=== PATIENT | male | born 1940 | race Caucasian/White ===

== ENCOUNTER 2016-10-23 13:15 | Emergency (ER) | payer OTHER ==
[2016-10-23 13:29] VITALS: BMI 33.0
[2016-10-23] MEDS ORDERED: NS 1000 ML 1,000 ML IV ONE ×2 (13:46→15:07)
[2016-10-23] MEDS ORDERED: NS 1000 ML 1,000 ML ONE ×2 (13:46→15:12)
[2016-10-23 13:51] VITALS: BP 118/72
--- NOTE | 2016-10-23 13:57 | DR.GENAD ---
HPI - PCP Primary Care Physician: dr ahncock in [place] - Complaint/Symptoms Chief Complaint Doctors Comments: Patient admits to onset of vomiting and diarrhea on last night. Prior to that he was in his usual state of health. Chief Complaint:: patient stated he has been vomiting diarrhea and dizzy - Source History Provided: Patient - Mode of Arrival Mode of Arrival: Ambulatory - Timing Onset of Chief Complaint: 10/22/16 PMH - PMH Past Medical History: No (unknown) Past Surgical History: No Surgical History: Unknown Unable to Obtain Due To: Altered mental status - Family History History of Family Medical Conditions: No - Social History Does patient currently use any type of tobacco product: No Have you used tobacco products in the last 12 months: No Type of Tobacco Use: None Does any household member use tobacco: No Alcohol Use: None Do you use any recreational Drugs:: No Lives With: Alone Lives Where: Home - infectious screening In the last 2 months have you had wt loss of >10#?: NO Have you had fever, night sweats or hemotysis?: No Have you traveled outside the country in the last 6 months?: No Isolation: Standard ROS - Review of Systems Constitutional: No Symptoms Reported Eyes: No Symptoms Reported ENTM: No Symptoms Reported Respiratoy: No Symptoms Reported Cardiovascular: No Symptoms Reported Gastrointestinal/Abdominal: No Symptoms Reported Genitourinary: No Symptoms Reported Neurological: Dizziness Musculoskeletal: No Symptoms Reported Integumentary: No Symptoms Reported Hematologic/Lymphatic: No Symptoms Reported Endocrine: No Symptoms Reported Psychiatric: No Symptoms Reported All Other Systems: Reviewed and Negative PE - Vital Signs Vitals: Temperature 98.7 F Pulse Rate 136 Respiratory Rate 18 Blood Pressure 118/72 O2 Sat by Pulse Oximetry 100 - General Limitations: No Limitations General Appearance: Alert, In No Apparent Distress - Head Head Exam: Normal Inspection, Atraumatic - Eyes Eye exam: Normal Appearance, PERRL, EOMI - ENT ENT Exam: Mucous Membranes Dry External Ear Exam: Normal External Inspection TM/Canal Exam: Bilateral Normal Nose Exam: Normal Nose Exam Mouth Exam: Normal Inspection Throat Exam: Normal Inspection - Neck Neck Exam: Normal Inspection - Chest Chest Inspection: Normal Inspection - Respiratory Respiratory Exam: Normal Lung Sounds Bilat, Chest Wall Tenderness Respiratory Exam: Bilateral Clear to Auscultation - Cardiovascular Cardiovascular Exam: Regular Rate - Abdominal Exam Abdominal Exam: Normal Inspection Abdominal Tenderness: negative: RUQ, RLQ, LUQ, LLQ, Epigastrium, Suprapubic, Diffuse, Mild, Moderate, Severe, Other - Extremities Extremities Exam: Normal Inspection, Full ROM. negative: Normal Capillary Refill (prolong) - Back Back Exam: negative: (R) CVA Tenderness, (L) CVA Tenderness - Neurologic Neurological Exam: Alert, Oriented X3, CN II-XII Intact - Psychiatric Psychiatric Exam: Normal Affect - Skin Skin Exam: Warm, Dry, Intact Course - Reevaluation 1st: Improved ROR - Labs Reviewed Result Diagrams: 10/23/16 13:34 10/23/16 13:34 Laboratory: WBC 12.1 X10^3/uL (3.6-10.0) H 10/23/16 13:34 RBC 5.61 X10^6/uL (4.7-6.0) 10/23/16 13:34 Hgb 16.5 g/dL (13.5-18.0) 10/23/16 13:34 Hct 49.4 % (42.0-54.0) 10/23/16 13:34 MCV 88.1 fL (80.0-100.0) 10/23/16 13:34 MCH 29.4 pg (27.0-34.0) 10/23/16 13:34 MCHC 33.3 g/dL (33.0-35.0) 10/23/16 13:34 RDW 14.6 % (11.6-16.5) 10/23/16 13:34 Plt Count 212 X10^3/uL (150.0-450.0) 10/23/16 13:34 MPV 8.4 fL (7.4-11.0) 10/23/16 13:34 Neut % 89.2 % (42.0-75.0) H 10/23/16 13:34 Lymph % 4.8 % (21.0-51.0) L 10/23/16 13:34 [place] % 4.8 % (0.0-13.0) 10/23/16 13:34 Eos % 1.0 % (0.9-2.9) 10/23/16 13:34 Baso % 0.2 % (0.2-1.0) 10/23/16 13:34 Neut # 10.8 x10^3/uL (2.2-4.8) H 10/23/16 13:34 Lymph # 0.6 X10^3/uL (1.3-2.9) L 10/23/16 13:34 [place] # 0.6 x10^3/uL (0.3-0.8) 10/23/16 13:34 Eos # 0.1 x10^3/uL (0.0-0.2) 10/23/16 13:34 Baso # 0.0 X10^3/uL (0.0-0.1) 10/23/16 13:34 Absolute Nucleated RBC 0.1 /100WBC 10/23/16 13:34 Sodium 139 mmol/L (136-145) 10/23/16 13:34 Corrected Sodium 141 mmol/L (136-145) 10/23/16 13:34 Potassium 4.1 mmol/L (3.5-5.1) 10/23/16 13:34 Chloride 101 mmol/L (98-107) 10/23/16 13:34 Carbon Dioxide 27.8 mmol/L (21-32) 10/23/16 13:34 BUN 36 mg/dL (7-18) H 10/23/16 13:34 Creatinine 1.62 mg/dL (0.70-1.30) H 10/23/16 13:34 Est GFR (MDRD) Af Amer 53 (>60) L 10/23/16 13:34 Est GFR (MDRD) Non-Af 44 (>60) L 10/23/16 13:34 Glucose 175 mg/dL (65-99) H 10/23/16 13:34 Hemoglobin A1c 6.3 % (4.5-6.2) H 10/23/16 13:34 Calcium 8.4 mg/dL (8.5-10.1) L 10/23/16 13:34 Corrected Calcium TNP 10/23/16 13:34 Phosphorus 4.2 mg/dL (2.6-4.7) 10/23/16 13:34 Magnesium 1.7 mg/dL (1.7-2.9) 10/23/16 13:34 Total Bilirubin 0.50 mg/dL (0.2-1.0) 10/23/16 13:34 AST 27 Units/L (15-37) 10/23/16 13:34 ALT 37 Units/L (12-78) 10/23/16 13:34 Alkaline Phosphatase 30 Units/L (46-116) L 10/23/16 13:34 Creatine Kinase 72 Units/L (39-308) 10/23/16 13:34 CK-MB (CK-2) 1.2 ng/mL (0-4.0) 10/23/16 13:34 CK/CKMB % Calc 1.7 % (<4) 10/23/16 13:34 Troponin I < 0.02 ng/mL (0-1.5) 10/23/16 13:34 Total Protein 8.0 g/dL (6.4-8.2) 10/23/16 13:34 Albumin 3.9 g/dL (3.4-5.0) 10/23/16 13:34 Globulin 4.1 g/dL (2.5-4.5) 10/23/16 13:34 Albumin/Globulin Ratio 1.0 Ratio (1.1-2.1) L 10/23/16 13:34 Specimen Type Clean catch urine 10/23/16 14:13 Urine Color Yellow (YELLOW) 10/23/16 14:13 Urine Appearance Clear (CLEAR) 10/23/16 14:13 Urine pH 5.0 (5.0 - 8.0) 10/23/16 14:13 Ur Specific [place] 1.025 (1.000-1.030) 10/23/16 14:13 Urine Protein 3+ (NEGATIVE) 10/23/16 14:13 Urine Glucose (UA) 1+ (NEGATIVE) 10/23/16 14:13 Urine Ketones 1+ (NEGATIVE) 10/23/16 14:13 Urine Occult Blood Negative (NEGATIVE) 10/23/16 14:13 Urine Nitrite Negative (NEGATIVE) 10/23/16 14:13 Urine Bilirubin 1+ (NEGATIVE) 10/23/16 14:13 Urine Urobilinogen Normal (NORMAL) 10/23/16 14:13 Ur Leukocyte Esterase 1+ (NEGATIVE) 10/23/16 14:13 Urine RBC Rare /HPF (NEGATIVE) 10/23/16 14:13 Urine WBC 03 - 06 /HPF (NEGATIVE) 10/23/16 14:13 Ur Squamous Epith Cells Few /HPF (NEGATIVE) 10/23/16 14:13 Amorphous Sediment 2+ /HPF (NEGATIVE) 10/23/16 14:13 Urine Bacteria Negative /HPF (NEGATIVE) 10/23/16 14:13 Hyaline Casts Few /LPF (NEGATIVE) 10/23/16 14:13 Urine Mucus Moderate /HPF (NEGATIVE) 10/23/16 14:13 Ur Culture Indicated? 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 No evidence of acute intracranial abnormality. 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
[2016-10-23 14:17] LABS: BASOPHILS % (AUTO) 0.2 % (0.2-1.0); EOSINOPHILS # (AUTO) 0.1 x10^3/uL (0.0-0.2); HEMATOCRIT 49.4 % (42.0-54.0); HEMOGLOBIN 16.5 g/dL (13.5-18.0); LYMPHOCYTES # (AUTO) 0.6 X10^3/uL (1.3-2.9); LYMPHOCYTES % (AUTO) 4.8 % (21.0-51.0); MEAN CORPUSCULAR HEMOGLOBIN 29.4 pg (27.0-34.0); MEAN CORPUSCULAR HGB CONC 33.3 g/dL (33.0-35.0); MEAN CORPUSCULAR VOLUME 88.1 fL (80.0-100.0); MEAN PLATELET VOLUME 8.4 fL (7.4-11.0); MONOCYTES # (AUTO) 0.6 x10^3/uL (0.3-0.8); MONOCYTES % (AUTO) 4.8 % (0.0-13.0); NEUTROPHILS # (AUTO) 10.8 x10^3/uL (2.2-4.8); NEUTROPHILS % (AUTO) 89.2 % (42.0-75.0); PLATELET COUNT 212 X10^3/uL (150.0-450.0); RED BLOOD COUNT 5.61 X10^6/uL (4.7-6.0); RED CELL DISTRIBUTION WIDTH 14.6 % (11.6-16.5); WHITE BLOOD COUNT 12.1 X10^3/uL (3.6-10.0)
[2016-10-23 14:29] LABS: HEMOGLOBIN A1C 6.3 % (4.5-6.2)
[2016-10-23 14:31] LABS: BLOOD UREA NITROGEN 36 mg/dL (7-18); CALCIUM 8.4 mg/dL (8.5-10.1); CARBON DIOXIDE 27.8 mmol/L (21-32); CHLORIDE 101 mmol/L (98-107); COR NA(FOR HYPERGLY) 141 mmol/L (136-145); CREATININE 1.62 mg/dL (0.70-1.30); GLUCOSE 175 mg/dL (65-99); SODIUM 139 mmol/L (136-145); TROPONIN I < 0.02 ng/mL (0-1.5); eGFR BLACK RACES 53 (>60); eGFR NON BLACK RACES 44 (>60)
[2016-10-23 14:33] LABS: BILIRUBIN,URINE 1+ (NEGATIVE); BLOOD/HEMOGLOBIN,URINE NEGATIVE (NEGATIVE); GLUCOSE, URINE 1+ (NEGATIVE); KETONES,URINE 1+ (NEGATIVE); LEUKOCYTE ESTERASE ,URINE 1+ (NEGATIVE); NITRITES,URINE NEGATIVE (NEGATIVE); PROTEIN,URINE 3+ (NEGATIVE); UROBILINOGEN,URINE NORMAL (NORMAL)
[2016-10-23 14:36] LABS: ALANINE AMINOTRANSFERASE 37 Units/L (12-78); ALBUMIN 3.9 g/dL (3.4-5.0); ALKALINE PHOSPHATASE 30 Units/L (46-116); ASPARTATE AMINO TRANSFERASE 27 Units/L (15-37); CKMB % 1.7 % (<4); CREATINE KINASE 72 Units/L (39-308); CREATINE KINASE MB 1.2 ng/mL (0-4.0); MAGNESIUM 1.7 mg/dL (1.7-2.9); PHOSPHORUS 4.2 mg/dL (2.6-4.7)
[2016-10-23 14:43] LABS: APPEARANCE,URINE CLEAR (CLEAR); COLOR,URINE YELLOW (YELLOW)
--- NOTE | 2016-10-23 14:47 | CT ---
HISTORY: Dizzy Study: CT brain without contrast Comparison: None Technique: Multiple axial images of the brain were obtained from the skull base to the vertex without administr ation of IV contrast. Dose reduction techniques including Automated Exposure Control (AEC) and adju stment of mA and kV were utilized. Findings: There is generalized cerebral volume loss and moderate nonspecific white matter hypoattenuation sugg esting microvascular ischemic changes. There is a hypodensity right subinsular region suggesting rem ote infarct. No evidence of acute hemorrhage, midline shift, mass effect or abnormal extra-axial fl uid collection. There is prominence of the ventricles and cortical sulci commensurate with volume l oss. The soft tissues and osseous structures are unremarkable. There is bilateral maxillary sinus m ucosal thickening. The remaining paranasal sinuses and mastoid air cells are clear. IMPRESSION: 1. 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 No ev idence of acute intracranial abnormality. 2. Bilateral maxillary sinus mucosal disease. Reported By:
[2016-10-23 14:51] LABS: BACTERIA,URINE NEGATIVE /HPF (NEGATIVE); RBC,URINE RARE /HPF (NEGATIVE); SQUAMOUS EPITHELIAL CELL,UR FEW /HPF (NEGATIVE)
[2016-10-23 14:52] LABS: AMORPHOUS SEDIMENT,UR 2+ /HPF (NEGATIVE); HYALINE CASTS, URINE FEW /LPF (NEGATIVE); MUCUS,URINE MODERATE /HPF (NEGATIVE)
[2016-10-23] MEDS ORDERED: ROCEPHIN VIAL 1 GM 1 GM in NS 50 ML IV + SPIKE MINIBAG* 50 ML IV ONE (15:07)
[2016-10-23] MEDS ORDERED: ROCEPHIN 1 GM IV PREMIX * OUT OF STOCK 50 ML IV ONE (15:12)
== END 2016-10-23 17:04 | disposition home or self-care (01) ==
LOC: ER 13:33
DX: N30.01 Acute cystitis with hematuria (principal); J32.0 Chronic maxillary sinusitis; E86.0 Dehydration; R79.89 Other specified abnormal findings of blood chemistry; G31.9 Degenerative disease of nervous system, unspecified; R41.82 Altered mental status, unspecified; R94.31 Abnormal electrocardiogram [ECG] [EKG]
CPT/HCPCS: 36415; 70450; 80053; 81001; 82550; 82553; 83036; 83735; 84100; 84484; 85025; 93005; 93010; 96365; 96367; 96374; 99283; A4222; J0696

== ENCOUNTER 2017-09-08 12:37 | Emergency (ER) | payer OTHER ==
[2017-09-08 12:49] VITALS: BMI 31.9
[2017-09-08 13:00] VITALS: BP 117/58
[2017-09-08] MEDS ORDERED: NS 1000 ML 1,000 ML IV ONE (13:00)
--- NOTE | 2017-09-08 13:01 | DR.GENAD ---
HPI - PCP Primary Care Physician: [facility] - HPI Comment HPI Comment: GETTING WORSE. NO DYSUTIA OR FEVER. - Complaint/Symptoms Chief Complaint Doctors Comments: GENERALIZE WEAKNESS, NAUSEA, VOMITING, ABDOMINA PAIN AND DIARRHEA FOR ONE DAY. Chief Complaint:: PT. C/O ABDOMINAL PAIN, DIARRHEA, MALAISE, WEAKNESS. - Nurses notes reviewed Nurses Notes Review: Yes - Source History Provided: Patient, Family Member - Mode of Arrival Mode of Arrival: Ambulatory - Timing Onset of Chief Complaint: 09/08/17 Came on: Suddenly - Duration Duration: Constant Duration: Hours - Severity Severity: Moderate PMH - PMH Past Medical History: Yes Past Medical History: Diabetes, Hypertension, Hypothyroidism, Kidney Stones Past Medical History Comment: BLEEDING ULCER Past Surgical History: Yes Surgical History: Tonsillectomy, Lithotripsy, Other Past Surgical History Comment: PROSTATE - Family History History of Family Medical Conditions: No - Social History Does patient currently use any type of tobacco product: No Have you used tobacco products in the last 12 months: No Type of Tobacco Use: None Does any household member use tobacco: No Alcohol Use: None Do you use any recreational Drugs:: No Lives With: Spouse Lives Where: Home - infectious screening In the last 2 months have you had wt loss of >10#?: NO Have you had fever, night sweats or hemotysis?: No Have you traveled outside the country in the last 6 months?: No Isolation: Standard ROS - Review of Systems Constitutional: Weakness, Fatigue. negative: Chills, Fever Eyes: No Symptoms Reported ENTM: Nose Congestion. negative: Ear Pain, Nose Discharge, Throat Pain Respiratoy: Moist Cough. negative: Short of Breath, Wheezing, Hemoptysis Cardiovascular: No Symptoms Reported Gastrointestinal/Abdominal: Abdominal Pain, Diarrhea, Nausea, Vomiting Genitourinary: No Symptoms Reported Neurological: No Symptoms Reported Musculoskeletal: No Symptoms Reported Integumentary: No Symptoms Reported Hematologic/Lymphatic: No Symptoms Reported Endocrine: No Symptoms Reported All Other Systems: Reviewed and Negative PE - Vital Signs Vitals: Temperature 96.9 F Pulse Rate [Right Brachial] 61 Pulse Rate 64 Respiratory Rate 17 Blood Pressure [Right Arm] 117/58 Blood Pressure 107/54 O2 Sat by Pulse Oximetry 95 - General Limitations: No Limitations General Appearance: Alert - Head Head Exam: Normal Inspection - Eyes Eye exam: Normal Appearance - ENT ENT Exam: Normal External Ear Exam External Ear Exam: Normal External Inspection TM/Canal Exam: Bilateral Normal Nose Exam: Normal Nose Exam Throat Exam: Normal Inspection - Neck Neck Exam: Normal Inspection - Chest Chest Inspection: Symmetric Chest Wall Rise - Respiratory Respiratory Exam: Normal Lung Sounds Bilat Respiratory Exam: Bilateral Clear to Auscultation - Cardiovascular Cardiovascular Exam: Regular Rate, Normal Rhythm, Normal Heart Sounds - Abdominal Exam Abdominal Exam: Normal Bowel Sounds, Soft Abdominal Tenderness: Diffuse, Moderate - Extremities Extremities Exam: Normal Inspection - Back Back Exam: Normal Inspection - Neurologic Neurological Exam: Alert, Oriented X3 - Skin Skin Exam: Normal Color MDM - Differential Diagnosis Differential Diagnosis: ABDOMINAL PAIN, DIARRHEA, INFLUENZA, Course - Treatment Treatment: SEE ORDERS. - Education/Counseling Education/Counseling: Patient, Education Educated On: Diagnosis, Needs for Follow Up ROR - Labs Reviewed Laboratory Results Reviewed?: Yes Result Diagrams: 09/08/17 13:00 09/08/17 13:00 Laboratory: WBC 3.1 X10^3/uL (3.6-10.0) L 09/08/17 13:00 RBC 4.97 X10^6/uL (4.7-6.0) 09/08/17 13:00 Hgb 15.1 g/dL (13.5-18.0) 09/08/17 13:00 Hct 43.4 % (42.0-54.0) 09/08/17 13:00 MCV 87.4 fL (80.0-100.0) 09/08/17 13:00 MCH 30.3 pg (27.0-34.0) 09/08/17 13:00 MCHC 34.7 g/dL (33.0-35.0) 09/08/17 13:00 RDW 13.2 % (11.6-16.5) 09/08/17 13:00 Plt Count 146 X10^3/uL (150.0-450.0) L 09/08/17 13:00 MPV 8.1 fL (7.4-11.0) 09/08/17 13:00 Neut % 53.3 % (42.0-75.0) 09/08/17 13:00 Lymph % 28.3 % (21.0-51.0) 09/08/17 13:00 [place] % 12.0 % (0.0-13.0) 09/08/17 13:00 Eos % 5.5 % (0.9-2.9) H 09/08/17 13:00 Baso % 0.9 % (0.2-1.0) 09/08/17 13:00 Neut # 1.7 x10^3/uL (2.2-4.8) L 09/08/17 13:00 Lymph # 0.9 X10^3/uL (1.3-2.9) L 09/08/17 13:00 [place] # 0.4 x10^3/uL (0.3-0.8) 09/08/17 13:00 Eos # 0.2 x10^3/uL (0.0-0.2) 09/08/17 13:00 Baso # 0.0 X10^3/uL (0.0-0.1) 09/08/17 13:00 Absolute Nucleated RBC 0.1 /100WBC 09/08/17 13:00 Sodium 138 mmol/L (136-145) 09/08/17 13:00 Corrected Sodium 139 mmol/L (136-145) 09/08/17 13:00 Potassium 3.8 mmol/L (3.5-5.1) 09/08/17 13:00 Chloride 102 mmol/L (98-107) 09/08/17 13:00 Carbon Dioxide 28.3 mmol/L (21-32) 09/08/17 13:00 BUN 23 mg/dL (7-18) H 09/08/17 13:00 Creatinine 1.34 mg/dL (0.70-1.30) H 09/08/17 13:00 Est GFR (MDRD) Af Amer > 60 (>60) 09/08/17 13:00 Est GFR (MDRD) Non-Af 55 (>60) L 09/08/17 13:00 Glucose 126 mg/dL (65-99) H 09/08/17 13:00 POC Glucose (mg/dL) 118 mg/dL (65-99) H 09/08/17 12:45 Calcium 8.8 mg/dL (8.5-10.1) 09/08/17 13:00 Corrected Calcium TNP 09/08/17 13:00 Total Bilirubin 0.20 mg/dL (0.2-1.0) 09/08/17 13:00 AST 33 Units/L (15-37) 09/08/17 13:00 ALT 30 Units/L (12-78) 09/08/17 13:00 Alkaline Phosphatase 24 Units/L (46-116) L 09/08/17 13:00 Creatine Kinase 136 Units/L (39-308) 09/08/17 13:00 CK-MB (CK-2) 1.8 ng/mL (0-4.0) 09/08/17 13:00 CK/CKMB % Calc 1.3 % (<4) 09/08/17 13:00 Troponin I < 0.02 ng/mL (0-1.5) 09/08/17 13:00 Total Protein 7.2 g/dL (6.4-8.2) 09/08/17 13:00 Albumin 3.5 g/dL (3.4-5.0) 09/08/17 13:00 Globulin 3.7 g/dL (2.5-4.5) 09/08/17 13:00 Albumin/Globulin Ratio 0.9 Ratio (1.1-2.1) L 09/08/17 13:00 Amylase 80 Units/L (25-115) 09/08/17 13:00 Lipase 282 Units/L (73-393) 09/08/17 13:00 Influenza Type A (PCR) Negative (NEGATIVE) 09/08/17 13:43 Influenza Type B (PCR) Positive (NEGATIVE) A 09/08/17 13:43 - XRAY XRAY Findings: REPORT DISCUSS WITH PATIENT. - EKG Rhythm: NSR (EKG NOTED) - Diagnosis Discharge Problem: Influenza, Gastroenteritis - Discharge Plan Disposition: 01 HOME, SELF-CARE Condition: Stable Prescriptions: Diphenoxylate/Atropine [Lomotil] 1 tab PO TID #15 tab Ondansetron [Zofran ODT 8 mg] 8 mg PO Q8H PRN #15 tab PRN Reason: Nausea/Vomiting Oseltamivir Phosphate [Tamiflu] 75 mg PO BID #10 cap - Follow ups/Referrals Follow ups/Referrals: KING GONZALEZ [Primary Care Provider] - 3 days - Instructions Instructions: Influenza, Adult, Tfey-mg-Fena, Viral Gastroenteritis, Adult, [id number] Additional Instructions: RETURN TO ED IF WORSE.
[2017-09-08 13:10] LABS: BASOPHILS % (AUTO) 0.9 % (0.2-1.0); EOSINOPHILS # (AUTO) 0.2 x10^3/uL (0.0-0.2); EOSINOPHILS % (AUTO) 5.5 % (0.9-2.9); HEMATOCRIT 43.4 % (42.0-54.0); HEMOGLOBIN 15.1 g/dL (13.5-18.0); LYMPHOCYTES # (AUTO) 0.9 X10^3/uL (1.3-2.9); LYMPHOCYTES % (AUTO) 28.3 % (21.0-51.0); MEAN CORPUSCULAR HEMOGLOBIN 30.3 pg (27.0-34.0); MEAN CORPUSCULAR HGB CONC 34.7 g/dL (33.0-35.0); MEAN CORPUSCULAR VOLUME 87.4 fL (80.0-100.0); MEAN PLATELET VOLUME 8.1 fL (7.4-11.0); MONOCYTES # (AUTO) 0.4 x10^3/uL (0.3-0.8); NEUTROPHILS # (AUTO) 1.7 x10^3/uL (2.2-4.8); NEUTROPHILS % (AUTO) 53.3 % (42.0-75.0); PLATELET COUNT 146 X10^3/uL (150.0-450.0); RED BLOOD COUNT 4.97 X10^6/uL (4.7-6.0); RED CELL DISTRIBUTION WIDTH 13.2 % (11.6-16.5); WHITE BLOOD COUNT 3.1 X10^3/uL (3.6-10.0)
[2017-09-08] MEDS ORDERED: NS 1000 ML 1,000 ML ONE (13:17)
--- NOTE | 2017-09-08 13:26 | RAD ---
HISTORY: Shortness of breath, cough, and weakness. Study: Portable chest. Comparison: None. Findings: The trachea is midline. The cardiac silhouette is enlarged without overt signs of failure. No obvio us focal consolidation, pleural effusion, or pneumothorax. The bony thorax is unremarkable. IMPRESSION: No acute cardiopulmonary disease. Reported By:
[2017-09-08 13:27] LABS: BLOOD UREA NITROGEN 23 mg/dL (7-18); CALCIUM 8.8 mg/dL (8.5-10.1); CARBON DIOXIDE 28.3 mmol/L (21-32); CHLORIDE 102 mmol/L (98-107); COR NA(FOR HYPERGLY) 139 mmol/L (136-145); CREATININE 1.34 mg/dL (0.70-1.30); SODIUM 138 mmol/L (136-145); TROPONIN I < 0.02 ng/mL (0-1.5); eGFR BLACK RACES > 60 (>60); eGFR NON BLACK RACES 55 (>60)
--- NOTE | 2017-09-08 13:29 | CT ---
History: Abdominal pain Study: CT abdomen and pelvis without contrast. Sagittal and coronal reformations were provided. Comparison: None Findings: There is a 1 cm calculus in the lower pole of the right kidney and a 8 mm calculus in the m id left kidney and a 6 mm calculus in the lower pole of the left kidney. There smaller calculi in the upper pole of the left kidney. There is no left hydronephrosis. There are small right parapelvic cys ts. The liver and spleen and pancreas and adrenal glands are unremarkable. There is no adenopathy or free fluid or free air or aneurysm. There is no abnormal bowel distention or inflammation. The prosta te is enlarged measuring 5.35 cm transverse width. The appendix is normal. 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 There is levoscoliosis. Impression: 1. Bilateral renal calculi without demonstration of hydronephrosis 2. Enlarged prostate Reported By:
[2017-09-08 13:31] LABS: ALANINE AMINOTRANSFERASE 30 Units/L (12-78); ALBUMIN 3.5 g/dL (3.4-5.0); ALKALINE PHOSPHATASE 24 Units/L (46-116); AMYLASE 80 Units/L (25-115); ASPARTATE AMINO TRANSFERASE 33 Units/L (15-37); CKMB % 1.3 % (<4); CREATINE KINASE 136 Units/L (39-308); CREATINE KINASE MB 1.8 ng/mL (0-4.0); LIPASE 282 Units/L (73-393); TOTAL PROTEIN 7.2 g/dL (6.4-8.2)
== END 2017-09-08 14:56 | disposition home or self-care (01) ==
LOC: ER 12:42
DX: J10.1 Influenza due to other identified influenza virus with other respiratory manifestations (principal); K52.89 Other specified noninfective gastroenteritis and colitis; N40.0 Benign prostatic hyperplasia without lower urinary tract symptoms; N20.0 Calculus of kidney; R10.84 Generalized abdominal pain
CPT/HCPCS: 36415; 71045; 74176; 80053; 82150; 82550; 82553; 83690; 84484; 85025; 87502; 93005; 93010; 96365; 99283; A4222

== ENCOUNTER 2020-11-21 21:21 | Inpatient (IN) ==
[2020-11-22 00:05] LABS: BASOPHILS # (AUTO) 0.1 X10^3/uL (0.0-0.1); BASOPHILS % (AUTO) 1.2 % (0.2-1.0); EOSINOPHILS # (AUTO) 0.2 x10^3/uL (0.0-0.2); EOSINOPHILS % (AUTO) 3.2 % (0.9-2.9); HEMATOCRIT 43.5 % (42.0-54.0); HEMOGLOBIN 14.5 g/dL (13.5-18.0); LYMPHOCYTES # (AUTO) 1.6 X10^3/uL (1.3-2.9); LYMPHOCYTES % (AUTO) 21.8 % (21.0-51.0); MEAN CORPUSCULAR HEMOGLOBIN 30.6 pg (27.0-34.0); MEAN CORPUSCULAR HGB CONC 33.3 g/dL (33.0-35.0); MEAN PLATELET VOLUME 8.5 fL (7.4-11.0); MONOCYTES # (AUTO) 0.7 x10^3/uL (0.3-0.8); MONOCYTES % (AUTO) 9.5 % (0.0-13.0); NEUTROPHILS # (AUTO) 4.7 x10^3/uL (2.2-4.8); NEUTROPHILS % (AUTO) 64.3 % (42.0-75.0); PLATELET COUNT 190 X10^3/uL (150.0-450.0); RED BLOOD COUNT 4.73 X10^6/uL (4.7-6.0); RED CELL DISTRIBUTION WIDTH 14.2 % (11.6-16.5); WHITE BLOOD COUNT 7.4 X10^3/uL (3.6-10.0)
[2020-11-22] MEDS: LR 1000 ML IV 1,000 ML IV SCH ×2 (00:10→12:19)
[2020-11-22 00:42] LABS: ALANINE AMINOTRANSFERASE 27 Units/L (12-78); ALBUMIN 3.4 g/dL (3.4-5.0); ALKALINE PHOSPHATASE 40 Units/L (46-116); ASPARTATE AMINO TRANSFERASE 23 Units/L (15-37); BLOOD UREA NITROGEN 25 mg/dL (7-18); CALCIUM 9.9 mg/dL (8.5-10.1); CHLORIDE 106 mmol/L (98-107); COR NA(FOR HYPERGLY) 147 mmol/L (136-145); CREATININE 1.47 mg/dL (0.70-1.30); SODIUM 147 mmol/L (136-145); TOTAL PROTEIN 6.7 g/dL (6.4-8.2); eGFR NON BLACK RACES 49 (>60)
[2020-11-22 01:03] LABS: BILIRUBIN,URINE NEGATIVE (NEGATIVE); BLOOD/HEMOGLOBIN,URINE 5+ (NEGATIVE); GLUCOSE, URINE NEGATIVE (NEGATIVE); KETONES,URINE 1+ (NEGATIVE); LEUKOCYTE ESTERASE ,URINE 1+ (NEGATIVE); NITRITES,URINE NEGATIVE (NEGATIVE); PROTEIN,URINE 3+ (NEGATIVE); UROBILINOGEN,URINE NORMAL (NORMAL)
[2020-11-22 01:13] LABS: APPEARANCE,URINE SLIGHTLY HAZY (CLEAR); COLOR,URINE AMBER (YELLOW)
[2020-11-22 01:14] LABS: BACTERIA,URINE TRACE /HPF (NEGATIVE); RBC,URINE TNTC /HPF (0-3); SQUAMOUS EPITHELIAL CELL,UR RARE /HPF (NEGATIVE)
[2020-11-22 01:43] VITALS: BMI 19.3
[2020-11-22] MEDS: NEURONTIN CAP 100 MG PO SCH ×2 (09:48→20:57)
[2020-11-22] MEDS: ASPIRIN PO SCH (09:48)
[2020-11-22] MEDS: COREG TAB 3.125 MG PO SCH ×2 (09:48→20:56)
[2020-11-22] MEDS: CYMBALTA PO SCH (09:49)
[2020-11-22] MEDS: NORVASC TAB 5 MG PO SCH (09:49)
[2020-11-22] MEDS: FOLIC ACID TAB 1 MG PO SCH (09:49)
[2020-11-22] MEDS: NAMENDA TAB 10 MG PO SCH ×2 (09:50→20:56)
[2020-11-22] MEDS: ARIMIDEX PO SCH (09:50)
[2020-11-22] MEDS: WELLBUTRIN XL 150 MG (DAILY) PO SCH (09:50)
[2020-11-22] MEDS: PLAVIX PO SCH (09:58)
[2020-11-22] MEDS: LOVENOX INJ 40 MG SYR SC SCH (14:47)
[2020-11-22] MEDS: LIPITOR TAB 80 MG PO SCH (20:56)
[2020-11-22] MEDS: REQUIP PO SCH (20:56)
[2020-11-23] MEDS: LR 1000 ML IV 1,000 ML IV SCH ×3 (00:30→20:39)
[2020-11-23 04:49] LABS: BASOPHILS % (AUTO) 0.8 % (0.2-1.0); EOSINOPHILS # (AUTO) 0.2 x10^3/uL (0.0-0.2); EOSINOPHILS % (AUTO) 3.9 % (0.9-2.9); HEMATOCRIT 39.4 % (42.0-54.0); LYMPHOCYTES # (AUTO) 1.4 X10^3/uL (1.3-2.9); LYMPHOCYTES % (AUTO) 23.8 % (21.0-51.0); MEAN CORPUSCULAR HEMOGLOBIN 30.3 pg (27.0-34.0); MEAN CORPUSCULAR VOLUME 91.9 fL (80.0-100.0); MEAN PLATELET VOLUME 8.5 fL (7.4-11.0); MONOCYTES # (AUTO) 0.6 x10^3/uL (0.3-0.8); NEUTROPHILS # (AUTO) 3.6 x10^3/uL (2.2-4.8); NEUTROPHILS % (AUTO) 61.5 % (42.0-75.0); PLATELET COUNT 152 X10^3/uL (150.0-450.0); RED BLOOD COUNT 4.29 X10^6/uL (4.7-6.0); RED CELL DISTRIBUTION WIDTH 13.9 % (11.6-16.5); WHITE BLOOD COUNT 5.9 X10^3/uL (3.6-10.0)
[2020-11-23 05:11] LABS: ALANINE AMINOTRANSFERASE 20 Units/L (12-78); ALBUMIN 2.8 g/dL (3.4-5.0); ALKALINE PHOSPHATASE 35 Units/L (46-116); ASPARTATE AMINO TRANSFERASE 21 Units/L (15-37); BLOOD UREA NITROGEN 21 mg/dL (7-18); CALCIUM 8.9 mg/dL (8.5-10.1); CHLORIDE 106 mmol/L (98-107); CHOL/HDL RATIO 2.9 (0.0-5.0); CHOLESTEROL 106 mg/dL (0-200); COR CA(FOR HYPOALB) 9.9 mg/dL (8.5-10.1); CREATININE 1.18 mg/dL (0.70-1.30); HDL CHOLESTEROL 36 mg/dL (40-60); SODIUM 143 mmol/L (136-145); TOTAL PROTEIN 5.7 g/dL (6.4-8.2); TRIGLYCERIDES 103 mg/dL (0-150); eGFR NON BLACK RACES > 60 (>60)
[2020-11-23] MEDS: LOVENOX INJ 40 MG SYR SC SCH (09:48)
[2020-11-23] MEDS: CYMBALTA PO SCH (09:49)
[2020-11-23] MEDS: COREG TAB 3.125 MG PO SCH ×2 (09:49→20:41)
[2020-11-23] MEDS: NORVASC TAB 5 MG PO SCH (09:49)
[2020-11-23] MEDS: FOLIC ACID TAB 1 MG PO SCH (09:49)
[2020-11-23] MEDS: WELLBUTRIN XL 150 MG (DAILY) PO SCH (09:49)
[2020-11-23] MEDS: NEURONTIN CAP 100 MG PO SCH ×2 (09:49→20:41)
[2020-11-23] MEDS: TAB-A-VITE PO SCH (09:49)
[2020-11-23] MEDS: NAMENDA TAB 10 MG PO SCH ×2 (09:50→20:41)
[2020-11-23] MEDS: ARIMIDEX PO SCH (09:50)
[2020-11-23] MEDS: PLAVIX PO SCH (09:50)
[2020-11-23] MEDS: ASPIRIN PO SCH (09:50)
[2020-11-23] MEDS: LIPITOR TAB 80 MG PO SCH (20:41)
[2020-11-23] MEDS: REQUIP PO SCH (20:41)
[2020-11-23] MEDS ORDERED: K-DUR TAB 20 MEQ PO ONE (21:51)
[2020-11-24] MEDS: LR 1000 ML IV 1,000 ML IV SCH ×3 (03:37→17:30)
[2020-11-24 05:16] LABS: BASOPHILS % (AUTO) 0.9 % (0.2-1.0); EOSINOPHILS # (AUTO) 0.3 x10^3/uL (0.0-0.2); EOSINOPHILS % (AUTO) 5.2 % (0.9-2.9); HEMATOCRIT 39.1 % (42.0-54.0); LYMPHOCYTES # (AUTO) 1.2 X10^3/uL (1.3-2.9); LYMPHOCYTES % (AUTO) 24.8 % (21.0-51.0); MEAN CORPUSCULAR HEMOGLOBIN 30.4 pg (27.0-34.0); MEAN CORPUSCULAR HGB CONC 33.2 g/dL (33.0-35.0); MEAN CORPUSCULAR VOLUME 91.5 fL (80.0-100.0); MEAN PLATELET VOLUME 8.5 fL (7.4-11.0); MONOCYTES # (AUTO) 0.5 x10^3/uL (0.3-0.8); MONOCYTES % (AUTO) 10.4 % (0.0-13.0); NEUTROPHILS % (AUTO) 58.7 % (42.0-75.0); PLATELET COUNT 132 X10^3/uL (150.0-450.0); RED BLOOD COUNT 4.27 X10^6/uL (4.7-6.0); RED CELL DISTRIBUTION WIDTH 13.9 % (11.6-16.5)
[2020-11-24 05:29] LABS: ALANINE AMINOTRANSFERASE 23 Units/L (12-78); ALBUMIN 2.8 g/dL (3.4-5.0); ALKALINE PHOSPHATASE 35 Units/L (46-116); ASPARTATE AMINO TRANSFERASE 19 Units/L (15-37); BLOOD UREA NITROGEN 22 mg/dL (7-18); CALCIUM 8.8 mg/dL (8.5-10.1); CARBON DIOXIDE 31.4 mmol/L (21-32); CHLORIDE 106 mmol/L (98-107); CREATININE 1.22 mg/dL (0.70-1.30); SODIUM 143 mmol/L (136-145); TOTAL PROTEIN 5.7 g/dL (6.4-8.2); eGFR NON BLACK RACES > 60 (>60)
[2020-11-24 05:30] LABS: COR CA(FOR HYPOALB) 9.8 mg/dL (8.5-10.1)
[2020-11-24] MEDS: LOVENOX INJ 40 MG SYR SC SCH (08:57)
[2020-11-24] MEDS: PLAVIX PO SCH (08:58)
[2020-11-24] MEDS: TAB-A-VITE PO SCH (08:58)
[2020-11-24] MEDS: CYMBALTA PO SCH (08:58)
[2020-11-24] MEDS: WELLBUTRIN XL 150 MG (DAILY) PO SCH (08:58)
[2020-11-24] MEDS: COREG TAB 3.125 MG PO SCH ×2 (08:58→20:53)
[2020-11-24] MEDS: NEURONTIN CAP 100 MG PO SCH ×2 (08:58→20:53)
[2020-11-24] MEDS: NORVASC TAB 5 MG PO SCH (08:58)
[2020-11-24] MEDS: FOLIC ACID TAB 1 MG PO SCH (08:59)
[2020-11-24] MEDS: ARIMIDEX PO SCH (08:59)
[2020-11-24] MEDS: ASPIRIN PO SCH (08:59)
[2020-11-24] MEDS: NAMENDA TAB 10 MG PO SCH ×2 (08:59→20:53)
[2020-11-24] MEDS: COZAAR PO SCH (11:07)
[2020-11-24] MEDS: LIPITOR TAB 80 MG PO SCH (20:53)
[2020-11-24] MEDS: REQUIP PO SCH (20:53)
[2020-11-25] MEDS: LR 1000 ML IV 1,000 ML IV SCH ×2 (02:04→05:07)
[2020-11-25] MEDS: WELLBUTRIN XL 150 MG (DAILY) PO SCH (08:18)
[2020-11-25] MEDS: FOLIC ACID TAB 1 MG PO SCH (08:18)
[2020-11-25] MEDS: NAMENDA TAB 10 MG PO SCH (08:18)
[2020-11-25] MEDS: ASPIRIN PO SCH (08:19)
[2020-11-25] MEDS: ARIMIDEX PO SCH (08:19)
[2020-11-25] MEDS: COZAAR PO SCH (08:19)
[2020-11-25] MEDS: TAB-A-VITE PO SCH (08:19)
[2020-11-25] MEDS: NEURONTIN CAP 100 MG PO SCH (08:19)
[2020-11-25] MEDS: CYMBALTA PO SCH (08:19)
[2020-11-25] MEDS: COREG TAB 3.125 MG PO SCH (08:19)
[2020-11-25] MEDS: NORVASC TAB 5 MG PO SCH (08:19)
[2020-11-25] MEDS ORDERED: COZAAR PO SCH (08:27)
[2020-11-25] MEDS: LOVENOX INJ 40 MG SYR SC SCH (08:29)
[2020-11-25] MEDS: PLAVIX PO SCH (09:09)
[2020-11-25 11:31] VITALS: BP 131/63
== END 2020-11-25 12:00 | disposition home or self-care (01) | DRG 66 ==
LOC: MED/SURG → OBSVTOIN 21:50
PROVIDERS: ADMIT Obstetrics & Gynecology Obstetrics; ATTEND Obstetrics & Gynecology Obstetrics
DX: D52.8 Other folate deficiency anemias; R47.81 Slurred speech; I61.3 Nontraumatic intracerebral hemorrhage in brain stem; Z74.2 Need for assistance at home and no other household member able to render care; R26.89 Other abnormalities of gait and mobility; I10 Essential (primary) hypertension; E11.65 Type 2 diabetes mellitus with hyperglycemia; R53.1 Weakness; Z20.822 Contact with and (suspected) exposure to COVID-19; R41.841 Cognitive communication deficit

== ENCOUNTER 2020-11-25 12:00 | Inpatient (IN) ==
--- NOTE | 2020-11-25 15:20 | PT/OTEVAL ---
PT/OT OBJECTIVES - HISTORY Prescription: PT consult Diagnosis: [place] CVA, left side weakness Precautions: Falls, SOB PMH: UTI, Dehydration, Gastroenteritis, Odontoid Fracture, Essential HTN,DM Prior Level of Function: Independent - COGNITION Mental Status: Alert, Oriented, Name, Place, Decreased Safety Awarenes Communication Status: Verbal Ability to Follow Directions: 2 Step - BED MOBILITY Rolling: Moderate, x1 Scooting: Moderate, x1 Bridging: Moderate, x1 - TRANSFERS Supine to Sit: Moderate, x1 Sit to Stand: Moderate, x1 Sit or Stand Pivot: Moderate, x1 - BALANCE Static Sitting: Good Standing: Fair Dynamic Sitting: Fair Standing: Fair - NEUROMOTOR/SENSATION Mcik. Lower Ext Sensation: WFL Coordination: WFL Mick. Upper Ext Sensation: WFL Coordination: WFL - STRENGTH Left LE Strength Number: 3 Other comment: 3-/5 grossly graded Right LE Strength Number: 3 Other comment: 3+/5 grossly graded Bilateral UE Strength Number: 3 Other comment: B UE strength 3-/5 - GAIT Pt. ambulates how many feet?: 25 Amount of assistance required: Moderate Amount of Assistance Required: Moderate Type of Assistive Device: Standard Walker PT/OT ASSESSMENT - PT Problem List: Decreased Bed Mobility, Decreased Transfers, Decreased Gait, Decreased Balance, Decreased Safety, Decreased LE Strength, Other - PT GOALS Short Term Goals Days: 10 Mobility: To be independent in bed mobility to allow return to PLOF Transfers: To be independent in transfers to allow return to PLOF Gait: To ambulate 150 ft at supv/touch A to increase tolerance Room Designer Goals Days: 20 Gait: To ambulate 350 ft at supv/touch A to increase tolerance Balance: To improve standing balance to G to reduce risk from falls ROM/Strength: To improve B LE mm strength 2-3 mm increments for stability - PATIENT GOALS Weakness and Barriers: Cognitive Barrier - PLAN Suggested Treatment Plan: Bed Mobility Training, Therapeutic Activity, Gait Training, Neuro Re-education, Therapeutic Ex with HEP, Home Management, Patient Education, Family Education - FREQUENCY AND DURATION PT: 6x Expected Continuation of Care at Discharge: Determined on Progress
--- NOTE | 2020-11-25 15:25 | PT/OTEVAL ---
PT/OT OBJECTIVES - HISTORY Prescription: OT eval Diagnosis: [place]ine CVA, left sided weakness PMH: Diabetes mellitus 2, hypertension, CVA, neuropathy, benign prosttic hypertrophy, and multiple kidney stones Prior Level of Function: Assistance Required Other, comment: per chart review, a - COGNITION Mental Status: Alert, Oriented, Decreased Safety Awarenes Ability to Follow Directions: 2 Step Memory Loss: Short term memory loss - BED MOBILITY Rolling: Minimal, x1 - TRANSFERS Supine to Sit: Moderate, x1 Sit to Stand: Moderate, x1 - ADL'S Feeding: Minimum, X1 Upper Body ADL: Setup, Minimum, X1 Lower Body ADL: Moderate, X1 - BALANCE Static Sitting: Good Standing: Fair Dynamic Sitting: Fair Standing: Fair Balance Comment: able to complete functional mobililty with FWW - NEUROMOTOR/SENSATION Mick. Lower Ext Sensation: WFL Coordination: WFL Mick. Upper Ext Sensation: WFL Coordination: WFL - HAND DOMINANCE Extremity Function: Hand Dominance: Right - ROM Bilateral UE ROM: WFL Muscle Tone: WFL - STRENGTH Left LE Strength Number: 3 Other comment: 3-/5 grossly graded Right LE Strength Number: 3 Other comment: 3+/5 grossly graded Bilateral UE Strength Number: 3 Other comment: B UE strength 3-/5 PT/OT ASSESSMENT - OT Problem List: Decreased Mobility ADL's, Decreased Safety Aware, Decreased Bathing, Decreased UE Strength - PT GOALS Short Term Goals Days: 10 Mobility: To be independent in bed mobility to allow return to PLOF Transfers: To be independent in transfers to allow return to PLOF Gait: To ambulate 150 ft at supv/touch A to increase tolerance Animal Humane Agent Supervisor Goals Days: 20 Gait: To ambulate 250 ft at supv/touch A to increase tolerance Balance: To improve standing balance to G to reduce risk from falls ROM/Strength: To improve B LE mm strenght 1-2 mm increments for stability - OT GOALS Short Term Goals Days: 10 Mobility for ADL's: pt to complete functional bed mobility with min A Safety Awareness: pt demo safe use of AE Dressing: Pt to complete dressing (ue/le) skills with mod A Bathing: pt to complete bathing with mod A Grooming: pt to complete grooming tasks with set-up Upper Ext. Strength/Use: pt to participate UE strength exercises in prep for ADLs Other: pt to Animal Humane Agent Supervisor Goals Days: 20 Mobility for ADL's: pt to complete functional bed mobility with I Dressing: Pt to complete dressing (ue/le) skills with I Bathing: pt to complete bathing with mod I Grooming: pt to complete grooming tasks with set-up Upper Ext. Strength/Use: pt to demo 4+/5 BUE strength - PATIENT GOALS Patient/Family Goals: get back home Goals Discussed with Patient/Family: Yes Rehabilitation Potential: fair Weakness and Barriers: Cognitive Barrier - PLAN Suggested Treatment Plan: Bed Mobility Training, Therapeutic Activity, Self Care Training, Neuro Re-education, Therapeutic Ex with HEP, Patient Education - FREQUENCY AND DURATION OT: 5 x week Expected Continuation of Care at Discharge: Determined on Progress
[2020-11-25 17:14] VITALS: BMI 15.3
[2020-11-25] MEDS: LR 1000 ML IV 1,000 ML IV SCH ×2 (17:31→17:53)
[2020-11-25] MEDS: REQUIP PO SCH (20:30)
[2020-11-25] MEDS: NAMENDA TAB 10 MG PO SCH (20:30)
[2020-11-25] MEDS: COREG TAB 3.125 MG PO SCH (20:30)
[2020-11-25] MEDS: NEURONTIN CAP 100 MG PO SCH (20:31)
[2020-11-25] MEDS: LIPITOR TAB 80 MG PO SCH (20:31)
[2020-11-26] MEDS: LR 1000 ML IV 1,000 ML IV SCH ×3 (05:03→20:31)
[2020-11-26] MEDS: NORVASC TAB 5 MG PO SCH (08:50)
[2020-11-26] MEDS: COREG TAB 3.125 MG PO SCH ×2 (08:50→20:26)
[2020-11-26] MEDS: ASPIRIN PO SCH (08:50)
[2020-11-26] MEDS: CYMBALTA PO SCH (08:50)
[2020-11-26] MEDS: NAMENDA TAB 10 MG PO SCH ×2 (08:50→20:25)
[2020-11-26] MEDS: NEURONTIN CAP 100 MG PO SCH ×2 (08:51→20:26)
[2020-11-26] MEDS: TAB-A-VITE PO SCH (08:51)
[2020-11-26] MEDS: WELLBUTRIN XL 150 MG (DAILY) PO SCH (08:51)
[2020-11-26] MEDS: FOLIC ACID TAB 1 MG PO SCH (08:51)
[2020-11-26] MEDS: ARIMIDEX PO SCH (08:51)
[2020-11-26] MEDS: COZAAR PO SCH (08:51)
[2020-11-26] MEDS: LOVENOX INJ 40 MG SYR SC SCH (08:52)
[2020-11-26] MEDS: PLAVIX PO SCH (08:52)
[2020-11-26] MEDS: REQUIP PO SCH (20:25)
[2020-11-26] MEDS: LIPITOR TAB 80 MG PO SCH (20:25)
[2020-11-27] MEDS: ARIMIDEX PO SCH (08:21)
[2020-11-27] MEDS: ASPIRIN PO SCH (08:21)
[2020-11-27] MEDS: COREG TAB 3.125 MG PO SCH ×2 (08:22→20:43)
[2020-11-27] MEDS: WELLBUTRIN XL 150 MG (DAILY) PO SCH (08:22)
[2020-11-27] MEDS: COZAAR PO SCH (08:22)
[2020-11-27] MEDS: FOLIC ACID TAB 1 MG PO SCH (08:23)
[2020-11-27] MEDS: CYMBALTA PO SCH (08:23)
[2020-11-27] MEDS: NAMENDA TAB 10 MG PO SCH ×2 (08:24→20:43)
[2020-11-27] MEDS: LOVENOX INJ 40 MG SYR SC SCH (08:24)
[2020-11-27] MEDS: NORVASC TAB 5 MG PO SCH (08:25)
[2020-11-27] MEDS: PLAVIX PO SCH (08:25)
[2020-11-27] MEDS: TAB-A-VITE PO SCH (08:25)
[2020-11-27] MEDS: NEURONTIN CAP 100 MG PO SCH ×2 (08:25→20:43)
[2020-11-27] MEDS: LR 1000 ML IV 1,000 ML IV SCH ×2 (10:54)
--- NOTE | 2020-11-27 15:42 | SP.EVAL ---
SPEECH EVALUATION - History Prescription: ST evaluation Diagnosis: CVA, L sided weakness Precautions: Safety PMH: Diabetes mellitus 2, hypertension, CVA, neuropathy, benign prosttic hypertrophy, and multiple kidney stones Prior Level of Function: Assistance Required - Objective Prior level of function: Assistance Required - Cognition Mental Status: Alert Ability to Follow Directions: 1 Step, 2 Step Memory Loss: Short term memory loss - Communication Status Communication Status: Garbled Automatized Sequences: Impaired Sentence Completion: Impaired Produces Sentences: Impaired - Verbal Expression Names Objects: WFL Names Pictures: [facility] Names Body Parts: wf - Oral/Motor Examination Motor/Speech: Dysarthia Swallowing: N/A - Speech Goals Short Term Goals Decreased Expressive Language: Pt will require intermittent cues to reduce rate of speech Fdc Goals Decreased Expressive Language: Pt will make wants and needs known in functional environment - Assessment Goals discussed with family?: Yes Patient/Family Goals: Improved cognitive-linguistic skills in functional environment - Rehabilitation Rehabilitation Potential: Good for stated goals Justification for potential: Supportive environment Weakness and Barriers: Cognitivie Barrier - Suggested Treatment Plan Suggested Treatment: Speech/Hearing Therapy, Patient/Family Education - Discharge Plan Expected Discharge Disposition: Retirement Facility, To Be Determined Anticipated Equipment Needs: NA
[2020-11-27] MEDS: REQUIP PO SCH (20:43)
[2020-11-27] MEDS: LIPITOR TAB 80 MG PO SCH (20:43)
[2020-11-28] MEDS: LR 1000 ML IV 1,000 ML IV SCH ×2 (03:10→15:28)
[2020-11-28] MEDS: ARIMIDEX PO SCH (09:59)
[2020-11-28] MEDS: COREG TAB 3.125 MG PO SCH ×2 (10:00→20:58)
[2020-11-28] MEDS: CYMBALTA PO SCH (10:00)
[2020-11-28] MEDS: ASPIRIN PO SCH (10:00)
[2020-11-28] MEDS: COZAAR PO SCH (10:00)
[2020-11-28] MEDS: FOLIC ACID TAB 1 MG PO SCH (10:00)
[2020-11-28] MEDS: NAMENDA TAB 10 MG PO SCH ×2 (10:01→20:59)
[2020-11-28] MEDS: NEURONTIN CAP 100 MG PO SCH ×2 (10:01→20:58)
[2020-11-28] MEDS: TAB-A-VITE PO SCH (10:02)
[2020-11-28] MEDS: NORVASC TAB 5 MG PO SCH (10:02)
[2020-11-28] MEDS: WELLBUTRIN XL 150 MG (DAILY) PO SCH (10:03)
[2020-11-28] MEDS: LOVENOX INJ 40 MG SYR SC SCH (10:29)
[2020-11-28] MEDS: PLAVIX PO SCH (10:30)
[2020-11-28] MEDS: LIPITOR TAB 80 MG PO SCH (20:58)
[2020-11-28] MEDS: REQUIP PO SCH (20:58)
[2020-11-29] MEDS: NORVASC TAB 5 MG PO SCH (09:36)
[2020-11-29] MEDS: ASPIRIN PO SCH (09:37)
[2020-11-29] MEDS: WELLBUTRIN XL 150 MG (DAILY) PO SCH (09:37)
[2020-11-29] MEDS: COREG TAB 3.125 MG PO SCH ×2 (09:37→20:06)
[2020-11-29] MEDS: NEURONTIN CAP 100 MG PO SCH ×2 (09:37→20:06)
[2020-11-29] MEDS: COZAAR PO SCH (09:38)
[2020-11-29] MEDS: TAB-A-VITE PO SCH (09:38)
[2020-11-29] MEDS: PLAVIX PO SCH (09:38)
[2020-11-29] MEDS: FOLIC ACID TAB 1 MG PO SCH (09:38)
[2020-11-29] MEDS: CYMBALTA PO SCH (09:38)
[2020-11-29] MEDS: LOVENOX INJ 40 MG SYR SC SCH (09:39)
[2020-11-29] MEDS: ARIMIDEX PO SCH (09:39)
[2020-11-29] MEDS: NAMENDA TAB 10 MG PO SCH ×2 (09:40→20:06)
[2020-11-29] MEDS: REQUIP PO SCH (20:06)
[2020-11-29] MEDS: LIPITOR TAB 80 MG PO SCH (20:06)
[2020-11-30] MEDS: COREG TAB 3.125 MG PO SCH ×2 (09:21→20:19)
[2020-11-30] MEDS: TAB-A-VITE PO SCH (09:21)
[2020-11-30] MEDS: COZAAR PO SCH (09:22)
[2020-11-30] MEDS: ASPIRIN PO SCH (09:22)
[2020-11-30] MEDS: NEURONTIN CAP 100 MG PO SCH ×2 (09:23→20:19)
[2020-11-30] MEDS: NAMENDA TAB 10 MG PO SCH ×2 (09:23→20:19)
[2020-11-30] MEDS: CYMBALTA PO SCH (09:24)
[2020-11-30] MEDS: ARIMIDEX PO SCH (09:24)
[2020-11-30] MEDS: WELLBUTRIN XL 150 MG (DAILY) PO SCH (09:24)
[2020-11-30] MEDS: NORVASC TAB 5 MG PO SCH (09:24)
[2020-11-30] MEDS: LOVENOX INJ 40 MG SYR SC SCH (09:25)
[2020-11-30] MEDS: FOLIC ACID TAB 1 MG PO SCH (09:25)
[2020-11-30] MEDS: PLAVIX PO SCH (09:26)
[2020-11-30] MEDS: LIPITOR TAB 80 MG PO SCH (20:19)
[2020-11-30] MEDS: REQUIP PO SCH (20:19)
[2020-12-01] MEDS: WELLBUTRIN XL 150 MG (DAILY) PO SCH (08:30)
[2020-12-01] MEDS: PLAVIX PO SCH (08:30)
[2020-12-01] MEDS: COREG TAB 3.125 MG PO SCH ×2 (08:30→20:06)
[2020-12-01] MEDS: NORVASC TAB 5 MG PO SCH (08:30)
[2020-12-01] MEDS: NAMENDA TAB 10 MG PO SCH ×2 (08:31→20:07)
[2020-12-01] MEDS: COZAAR PO SCH (08:31)
[2020-12-01] MEDS: TAB-A-VITE PO SCH (08:31)
[2020-12-01] MEDS: FOLIC ACID TAB 1 MG PO SCH (08:31)
[2020-12-01] MEDS: CYMBALTA PO SCH (08:31)
[2020-12-01] MEDS: ASPIRIN PO SCH (08:31)
[2020-12-01] MEDS: NEURONTIN CAP 100 MG PO SCH ×2 (08:31→20:07)
[2020-12-01] MEDS: LOVENOX INJ 40 MG SYR SC SCH (08:32)
[2020-12-01] MEDS: ARIMIDEX PO SCH (08:32)
[2020-12-01] MEDS: REQUIP PO SCH (20:07)
[2020-12-01] MEDS: LIPITOR TAB 80 MG PO SCH (20:07)
[2020-12-02 05:19] LABS: BASOPHILS # (AUTO) 0.1 X10^3/uL (0.0-0.1); EOSINOPHILS # (AUTO) 0.2 x10^3/uL (0.0-0.2); EOSINOPHILS % (AUTO) 4.1 % (0.9-2.9); HEMATOCRIT 42.9 % (42.0-54.0); HEMOGLOBIN 13.9 g/dL (13.5-18.0); LYMPHOCYTES # (AUTO) 1.3 X10^3/uL (1.3-2.9); LYMPHOCYTES % (AUTO) 22.1 % (21.0-51.0); MEAN CORPUSCULAR HEMOGLOBIN 30.1 pg (27.0-34.0); MEAN CORPUSCULAR HGB CONC 32.4 g/dL (33.0-35.0); MEAN CORPUSCULAR VOLUME 92.9 fL (80.0-100.0); MEAN PLATELET VOLUME 8.5 fL (7.4-11.0); MONOCYTES # (AUTO) 0.5 x10^3/uL (0.3-0.8); MONOCYTES % (AUTO) 9.2 % (0.0-13.0); NEUTROPHILS # (AUTO) 3.7 x10^3/uL (2.2-4.8); NEUTROPHILS % (AUTO) 63.6 % (42.0-75.0); PLATELET COUNT 161 X10^3/uL (150.0-450.0); RED BLOOD COUNT 4.62 X10^6/uL (4.7-6.0); RED CELL DISTRIBUTION WIDTH 14.6 % (11.6-16.5); WHITE BLOOD COUNT 5.8 X10^3/uL (3.6-10.0)
[2020-12-02 05:36] LABS: ALANINE AMINOTRANSFERASE 25 Units/L (12-78); ALKALINE PHOSPHATASE 34 Units/L (46-116); ASPARTATE AMINO TRANSFERASE 17 Units/L (15-37); BLOOD UREA NITROGEN 25 mg/dL (7-18); CALCIUM 9.1 mg/dL (8.5-10.1); CARBON DIOXIDE 30.8 mmol/L (21-32); CHLORIDE 106 mmol/L (98-107); COR CA(FOR HYPOALB) 9.9 mg/dL (8.5-10.1); SODIUM 143 mmol/L (136-145); eGFR NON BLACK RACES 56 (>60)
[2020-12-02] MEDS: ASPIRIN PO SCH (08:26)
[2020-12-02] MEDS: FOLIC ACID TAB 1 MG PO SCH (08:26)
[2020-12-02] MEDS: NORVASC TAB 5 MG PO SCH (08:26)
[2020-12-02] MEDS: CYMBALTA PO SCH (08:27)
[2020-12-02] MEDS: COZAAR PO SCH (08:27)
[2020-12-02] MEDS: TAB-A-VITE PO SCH (08:27)
[2020-12-02] MEDS: NEURONTIN CAP 100 MG PO SCH ×2 (08:27→20:09)
[2020-12-02] MEDS: COREG TAB 3.125 MG PO SCH ×2 (08:27→20:09)
[2020-12-02] MEDS: WELLBUTRIN XL 150 MG (DAILY) PO SCH (08:27)
[2020-12-02] MEDS: ARIMIDEX PO SCH (08:28)
[2020-12-02] MEDS: NAMENDA TAB 10 MG PO SCH ×2 (08:28→20:09)
[2020-12-02] MEDS: LOVENOX INJ 40 MG SYR SC SCH (08:38)
[2020-12-02] MEDS: PLAVIX PO SCH (08:38)
[2020-12-02] MEDS: REQUIP PO SCH (20:09)
[2020-12-02] MEDS: LIPITOR TAB 80 MG PO SCH (20:09)
[2020-12-03 07:59] VITALS: BP 133/72
[2020-12-03] MEDS: LOVENOX INJ 40 MG SYR SC SCH (08:50)
[2020-12-03] MEDS: WELLBUTRIN XL 150 MG (DAILY) PO SCH (08:52)
[2020-12-03] MEDS: ARIMIDEX PO SCH (08:52)
[2020-12-03] MEDS: NEURONTIN CAP 100 MG PO SCH (08:52)
[2020-12-03] MEDS: ASPIRIN PO SCH (08:52)
[2020-12-03] MEDS: CYMBALTA PO SCH (08:52)
[2020-12-03] MEDS: COZAAR PO SCH (08:52)
[2020-12-03] MEDS: FOLIC ACID TAB 1 MG PO SCH (08:52)
[2020-12-03] MEDS: TAB-A-VITE PO SCH (08:53)
[2020-12-03] MEDS: NORVASC TAB 5 MG PO SCH (08:53)
[2020-12-03] MEDS: PLAVIX PO SCH (08:53)
[2020-12-03] MEDS: COREG TAB 3.125 MG PO SCH (08:53)
[2020-12-03] MEDS: NAMENDA TAB 10 MG PO SCH (08:53)
== END 2020-12-03 13:50 | disposition home health service (06) | DRG 66 ==
LOC: MED/SURG 12:13
PROVIDERS: ADMIT Obstetrics & Gynecology Obstetrics; ATTEND Obstetrics & Gynecology Obstetrics
DX: I69.118 Other symptoms and signs involving cognitive functions following nontraumatic intracerebral hemorrhage; I61.3 Nontraumatic intracerebral hemorrhage in brain stem; R47.81 Slurred speech; I10 Essential (primary) hypertension; Z51.89 Encounter for other specified aftercare

== ENCOUNTER 2021-08-30 17:54 | Inpatient (IN) ==
[2021-08-30] MEDS ORDERED: NovoLIN R (or HumuLIN R) SUBCUT PRN (20:39)
[2021-08-30 21:00] LABS: WHITE BLOOD COUNT 5.4 X10^3/uL (3.6-10.0)
[2021-08-30 21:03] LABS: BASOPHILS # (AUTO) 0.1 X10^3/uL (0.0-0.1); BASOPHILS % (AUTO) 1.1 % (0.2-1.0); EOSINOPHILS # (AUTO) 0.2 x10^3/uL (0.0-0.2); EOSINOPHILS % (AUTO) 2.9 % (0.9-2.9); HEMATOCRIT 38.3 % (42.0-54.0); HEMOGLOBIN 13.2 g/dL (13.5-18.0); LYMPHOCYTES % (AUTO) 19.3 % (21.0-51.0); MEAN CORPUSCULAR HEMOGLOBIN 29.7 pg (27.0-34.0); MEAN CORPUSCULAR HGB CONC 34.3 g/dL (33.0-35.0); MEAN CORPUSCULAR VOLUME 86.5 fL (80.0-100.0); MEAN PLATELET VOLUME 8.5 fL (7.4-11.0); MONOCYTES # (AUTO) 0.5 x10^3/uL (0.3-0.8); MONOCYTES % (AUTO) 8.8 % (0.0-13.0); NEUTROPHILS # (AUTO) 3.7 x10^3/uL (2.2-4.8); NEUTROPHILS % (AUTO) 67.9 % (42.0-75.0); RED BLOOD COUNT 4.43 X10^6/uL (4.7-6.0); RED CELL DISTRIBUTION WIDTH 16.4 % (11.6-16.5)
[2021-08-30 21:09] LABS: BLOOD UREA NITROGEN 24 mg/dL (7-18); CALCIUM 8.9 mg/dL (8.5-10.1); CHLORIDE 109 mmol/L (98-107); CREATININE 1.38 mg/dL (0.70-1.30); SODIUM 148 mmol/L (136-145); eGFR NON BLACK RACES 52 (>60)
[2021-08-30] MEDS: SNACK - Diabetic Appropriate PO SCH (22:44)
[2021-08-30] MEDS: LR 1,000 ML IV 1,000 ML IV SCH (23:04)
--- NOTE | 2021-08-31 01:22 | RAD ---
HISTORYSOB, WEAKNESS HX CVA, DM, HTN. SX TONSILSSTUDYCHEST, 1 [id number] trachea is midline. The cardiac silhouette is unremarkable. Patchy right upper lobe infiltrate. The remainder lungs are clear. No pleural effusion or pneumothorax.. The bony thorax is unremarkable.IMPRESSIONPatchy right upper lobe infiltrate..Electronically signed by: Tee Rodriguez (Aug 31, 2021 01:20:24)
[2021-08-31] MEDS: RESTORIL CAP 15 MG PO PRN (02:55)
[2021-08-31 03:33] VITALS: BMI 23.0
[2021-08-31 06:17] LABS: BASOPHILS % (AUTO) 0.6 % (0.2-1.0); EOSINOPHILS # (AUTO) 0.2 x10^3/uL (0.0-0.2); EOSINOPHILS % (AUTO) 3.6 % (0.9-2.9); LYMPHOCYTES # (AUTO) 1.4 X10^3/uL (1.3-2.9); LYMPHOCYTES % (AUTO) 25.3 % (21.0-51.0); MEAN CORPUSCULAR HEMOGLOBIN 29.5 pg (27.0-34.0); MEAN CORPUSCULAR HGB CONC 34.2 g/dL (33.0-35.0); MEAN CORPUSCULAR VOLUME 86.4 fL (80.0-100.0); MEAN PLATELET VOLUME 8.5 fL (7.4-11.0); MONOCYTES # (AUTO) 0.6 x10^3/uL (0.3-0.8); MONOCYTES % (AUTO) 10.1 % (0.0-13.0); NEUTROPHILS # (AUTO) 3.4 x10^3/uL (2.2-4.8); NEUTROPHILS % (AUTO) 60.4 % (42.0-75.0); RED CELL DISTRIBUTION WIDTH 16.4 % (11.6-16.5); WHITE BLOOD COUNT 5.7 X10^3/uL (3.6-10.0)
[2021-08-31 06:35] LABS: BLOOD UREA NITROGEN 19 mg/dL (7-18); CALCIUM 9.1 mg/dL (8.5-10.1); CARBON DIOXIDE 32.6 mmol/L (21-32); CHLORIDE 109 mmol/L (98-107); CREATININE 1.31 mg/dL (0.70-1.30); SODIUM 146 mmol/L (136-145); eGFR NON BLACK RACES 56 (>60)
[2021-08-31 12:02] LABS: BILIRUBIN,URINE NEGATIVE (NEGATIVE); BLOOD/HEMOGLOBIN,URINE 5+ (NEGATIVE); GLUCOSE, URINE NEGATIVE (NEGATIVE); KETONES,URINE NEGATIVE (NEGATIVE); LEUKOCYTE ESTERASE ,URINE NEGATIVE (NEGATIVE); NITRITES,URINE NEGATIVE (NEGATIVE); PROTEIN,URINE 2+ (NEGATIVE); UROBILINOGEN,URINE NORMAL (NORMAL)
[2021-08-31 12:07] LABS: APPEARANCE,URINE CLEAR (CLEAR); COLOR,URINE YELLOW (YELLOW)
[2021-08-31 12:12] LABS: RBC,URINE 20-30 /HPF (0-3)
[2021-08-31 12:13] LABS: BACTERIA,URINE NEGATIVE /HPF (NEGATIVE); SQUAMOUS EPITHELIAL CELL,UR NEGATIVE /HPF (NEGATIVE)
[2021-08-31] MEDS ORDERED: ASPIRIN PO SCH (18:00)
[2021-08-31] MEDS ORDERED: PLAVIX PO SCH (18:00)
[2021-08-31] MEDS ORDERED: WELLBUTRIN XL 150 MG (DAILY) PO SCH (18:00)
[2021-08-31] MEDS ORDERED: PROTONIX TAB 40 MG PO SCH (18:00)
[2021-08-31] MEDS ORDERED: ARIMIDEX PO SCH (18:00)
[2021-08-31] MEDS ORDERED: NAMENDA TAB 10 MG PO SCH (18:00)
[2021-08-31] MEDS ORDERED: FOLIC ACID TAB 1 MG PO SCH (18:00)
[2021-08-31] MEDS ORDERED: COZAAR PO SCH (18:00)
[2021-08-31] MEDS ORDERED: COREG TAB 3.125 MG PO SCH (18:00)
[2021-08-31] MEDS: ROCEPHIN VIAL 1 GRAM 1 G in NS 100 ML IV + SPIKE MINIBAG* 100 ML IV SCH (18:34)
[2021-08-31] MEDS: WELLBUTRIN XL 150 MG (DAILY) PO SCH (21:08)
[2021-08-31] MEDS: ASPIRIN PO SCH (21:09)
[2021-08-31] MEDS: COZAAR PO SCH (21:09)
[2021-08-31] MEDS: LIPITOR TAB 80 MG PO SCH (21:10)
[2021-08-31] MEDS: PLAVIX PO SCH (21:11)
[2021-08-31] MEDS: COREG TAB 3.125 MG PO SCH (21:11)
[2021-08-31] MEDS: REQUIP PO SCH (21:12)
[2021-08-31] MEDS: FOLIC ACID TAB 1 MG PO SCH (21:12)
[2021-08-31] MEDS: PROTONIX TAB 40 MG PO SCH (21:13)
[2021-08-31] MEDS: LR 1,000 ML IV 1,000 ML IV SCH (21:13)
[2021-08-31] MEDS: SNACK - Diabetic Appropriate PO SCH (21:14)
[2021-08-31] MEDS: NAMENDA TAB 10 MG PO SCH (21:14)
[2021-08-31] MEDS: ARIMIDEX PO SCH (21:14)
[2021-08-31] MEDS: NEURONTIN CAP 100 MG PO SCH (21:17)
[2021-09-01] MEDS: RESTORIL CAP 15 MG PO PRN ×2 (00:11→21:06)
--- NOTE | 2021-09-01 06:17 | RAD ---
HISTORYUPPER LOBE INFILTRATESTUDYCHEST, 1 [id number].TECHNIQUEAP view of the chestFINDINGSThe cardiac and mediastinal contours appear stable. Similar appearance of mild patchy right upper lobe opacity. No definite pleural effusion or pneumothorax. Soft tissue attenuation limits evaluation.IMPRESSIONNo significant change in patchy right upper lobe infiltrate. Recommend follow-up to document resolution.Electronically signed by: Vladimir Vega (Sep 01, 2021 06:16:02)
[2021-09-01] MEDS: NEURONTIN CAP 100 MG PO SCH ×3 (06:18→21:35)
[2021-09-01 06:21] LABS: BASOPHILS % (AUTO) 0.7 % (0.2-1.0); EOSINOPHILS # (AUTO) 0.3 x10^3/uL (0.0-0.2); EOSINOPHILS % (AUTO) 4.9 % (0.9-2.9); HEMATOCRIT 37.2 % (42.0-54.0); HEMOGLOBIN 12.6 g/dL (13.5-18.0); LYMPHOCYTES # (AUTO) 1.5 X10^3/uL (1.3-2.9); LYMPHOCYTES % (AUTO) 23.8 % (21.0-51.0); MEAN CORPUSCULAR HEMOGLOBIN 29.8 pg (27.0-34.0); MEAN CORPUSCULAR HGB CONC 33.9 g/dL (33.0-35.0); MEAN CORPUSCULAR VOLUME 87.9 fL (80.0-100.0); MEAN PLATELET VOLUME 8.5 fL (7.4-11.0); MONOCYTES # (AUTO) 0.6 x10^3/uL (0.3-0.8); MONOCYTES % (AUTO) 10.2 % (0.0-13.0); NEUTROPHILS # (AUTO) 3.7 x10^3/uL (2.2-4.8); NEUTROPHILS % (AUTO) 60.4 % (42.0-75.0); RED BLOOD COUNT 4.23 X10^6/uL (4.7-6.0); RED CELL DISTRIBUTION WIDTH 16.5 % (11.6-16.5); WHITE BLOOD COUNT 6.1 X10^3/uL (3.6-10.0)
[2021-09-01 06:38] LABS: BLOOD UREA NITROGEN 18 mg/dL (7-18); CALCIUM 8.9 mg/dL (8.5-10.1); CARBON DIOXIDE 30.3 mmol/L (21-32); CHLORIDE 105 mmol/L (98-107); CREATININE 1.27 mg/dL (0.70-1.30); SODIUM 141 mmol/L (136-145); eGFR NON BLACK RACES 58 (>60)
[2021-09-01] MEDS: ASPIRIN PO SCH (08:20)
[2021-09-01] MEDS: TAB-A-VITE PO SCH (08:20)
[2021-09-01] MEDS: NAMENDA TAB 10 MG PO SCH ×2 (08:20→21:05)
[2021-09-01] MEDS: COZAAR PO SCH (08:20)
[2021-09-01] MEDS: ROCEPHIN VIAL 1 GRAM 1 G in NS 100 ML IV + SPIKE MINIBAG* 100 ML IV SCH (08:20)
[2021-09-01] MEDS: WELLBUTRIN XL 150 MG (DAILY) PO SCH ×2 (08:20→09:06)
[2021-09-01] MEDS: FOLIC ACID TAB 1 MG PO SCH (08:22)
[2021-09-01] MEDS: COREG TAB 3.125 MG PO SCH ×2 (08:22→21:05)
[2021-09-01] MEDS: ARIMIDEX PO SCH (08:22)
[2021-09-01] MEDS: PROTONIX TAB 40 MG PO SCH ×2 (08:22→21:05)
[2021-09-01] MEDS: PLAVIX PO SCH (09:06)
[2021-09-01] MEDS ORDERED: ULTRAM PO PRN (10:19)
[2021-09-01] MEDS: LOVENOX INJ 40 MG SYR SC SCH (10:53)
[2021-09-01] MEDS: DIFLUCAN PO SCH (10:53)
[2021-09-01 11:35] LABS: ALANINE AMINOTRANSFERASE 23 Units/L (12-78); ALBUMIN 2.7 g/dL (3.4-5.0); ALKALINE PHOSPHATASE 39 Units/L (46-116); ASPARTATE AMINO TRANSFERASE 23 Units/L (15-37); COR CA(FOR HYPOALB) 9.9 mg/dL (8.5-10.1); TOTAL PROTEIN 5.7 g/dL (6.4-8.2)
[2021-09-01] MEDS: SNACK - Diabetic Appropriate PO SCH ×2 (21:04→21:43)
[2021-09-01] MEDS: LR 1,000 ML IV 1,000 ML IV SCH (21:05)
[2021-09-01] MEDS: LIPITOR TAB 80 MG PO SCH (21:05)
[2021-09-01] MEDS: REQUIP PO SCH (21:06)
[2021-09-02] MEDS: NEURONTIN CAP 100 MG PO SCH ×2 (05:15→13:19)
[2021-09-02] MEDS: COREG TAB 3.125 MG PO SCH (08:53)
[2021-09-02] MEDS: ASPIRIN PO SCH (08:53)
[2021-09-02] MEDS: COZAAR PO SCH (08:54)
[2021-09-02] MEDS: FOLIC ACID TAB 1 MG PO SCH (08:55)
[2021-09-02] MEDS: DIFLUCAN PO SCH (09:02)
[2021-09-02] MEDS: PLAVIX PO SCH (09:02)
[2021-09-02] MEDS: NAMENDA TAB 10 MG PO SCH (09:05)
[2021-09-02] MEDS: ARIMIDEX PO SCH (09:06)
[2021-09-02] MEDS: PROTONIX TAB 40 MG PO SCH (09:06)
[2021-09-02] MEDS: ROCEPHIN VIAL 1 GRAM 1 G in NS 100 ML IV + SPIKE MINIBAG* 100 ML IV SCH (09:07)
[2021-09-02] MEDS: TAB-A-VITE PO SCH (09:08)
[2021-09-02] MEDS: WELLBUTRIN XL 150 MG (DAILY) PO SCH (09:09)
[2021-09-02] MEDS: LOVENOX INJ 40 MG SYR SC SCH (09:26)
[2021-09-02] MEDS ORDERED: LINZESS PO SCH (09:51)
[2021-09-02 11:35] VITALS: BP 152/70
[2021-09-03] MEDS ORDERED: LINZESS PO SCH (09:00)
== END 2021-09-02 14:10 | disposition home or self-care (01) | DRG 948 ==
LOC: MED/SURG → OBSVTOIN 18:21
PROVIDERS: ADMIT Obstetrics & Gynecology Obstetrics; ATTEND Obstetrics & Gynecology Obstetrics
DX: B35.0 Tinea barbae and tinea capitis; R53.1 Weakness; W18.39XA Other fall on same level, initial encounter; R26.89 Other abnormalities of gait and mobility; Z86.73 Personal history of transient ischemic attack (TIA), and cerebral infarction without residual deficits; I10 Essential (primary) hypertension; E11.65 Type 2 diabetes mellitus with hyperglycemia; F43.29 Adjustment disorder with other symptoms; Z20.822 Contact with and (suspected) exposure to COVID-19; N40.0 Benign prostatic hyperplasia without lower urinary tract symptoms